=== PATIENT | female | born 1965 | race Caucasian/White ===

== ENCOUNTER 2016-08-22 | Outpatient (CLI) | payer BC | END 2016-08-22 15:02 | disposition critical access hospital (66) | CPT/HCPCS: A0425; A0429 ==

== ENCOUNTER 2016-08-22 15:21 | Emergency (ER) | payer BC ==
[2016-08-22] MEDS ORDERED: ASPIRIN CHEW 81 MG TABLET PO STA (16:08)
[2016-08-22] MEDS ORDERED: ASPIRIN CHEW 81 MG TABLET ONE (16:28)
== END 2016-08-22 17:47 | disposition home or self-care (01) ==
DX: R55 Syncope and collapse (principal); R41.0 Disorientation, unspecified; F41.9 Anxiety disorder, unspecified
CPT/HCPCS: 36415; 80053; 81001; 83690; 83735; 84484; 85025; 87086; 93005; 93010; 99284; A9270

== ENCOUNTER 2016-08-30 18:57 | Emergency (ER) | payer BC ==
[2016-08-30] MEDS ORDERED: POTASSIUM CHLORIDE 20 MEQ TABLET PO STA (21:03)
[2016-08-30] MEDS ORDERED: POTASSIUM CHLORIDE 20 MEQ TABLET PO ONE (21:04)
== END 2016-08-30 21:34 | disposition home or self-care (01) ==
DX: R42 Dizziness and giddiness (principal)
CPT/HCPCS: 36415; 80053; 83690; 85025; 93005; 93010; 93880; 99283; 99284; A9270

== ENCOUNTER 2016-08-31 16:17 | Outpatient (CLI) | payer BC ==
[2016-08-31] MEDS ORDERED: GADOBUTROL 10 MMOL/10 ML VIAL IVP ONE (17:24)
== END 2016-08-31 16:18 | disposition home or self-care (01) ==
DX: R41.82 Altered mental status, unspecified (principal); J34.1 Cyst and mucocele of nose and nasal sinus; R93.0 Abnormal findings on diagnostic imaging of skull and head, not elsewhere classified
CPT/HCPCS: 70553; A9585

== ENCOUNTER 2016-11-15 00:33 | Emergency (ER) | payer BC | END 2016-11-15 01:47 | disposition home or self-care (01) | DX: R00.2 Palpitations (principal) ==

== ENCOUNTER 2017-03-03 10:18 | Outpatient (CLI) | payer BC ==
--- NOTE | 2017-03-06 15:41 | Mammography Report ---
DIGITAL SCREENING MAMMOGRAM: 03/03/2017 CLINICAL INDICATION: A 51-year-old with family history of breast cancer, for screening. COMPARISON: 11/2015, 12/2009. TECHNIQUE: Routine CC and MLO projections were obtained of the breasts. FINDINGS: Scattered fibroglandular tissue is present within the breasts. There are no dominant malka s, suspicious microcalcifications, or secondary signs of malignancy. In comparison to the previous st udies, there are no significant changes. ASSESSMENT: NO MAMMOGRAPHIC EVIDENCE OF MALIGNANCY. NO SIGNIFICANT INTERVAL CHANGES. RECOMMENDATION: Screening mammography is recommended annually. BIRADS category 1 - negative. STANDARD QUALIFYING STATEMENTS 1. This examination was reviewed with the aid of Computed-Aided Detection (CAD). 2. A negative or benign imaging report should not delay biopsy if clinically suspicious findings are present. Consider surgical consultation if warranted. More than 5% of cancers are not identified by i maging. 3. Dense breasts may obscure an underlying neoplasm. JOB #: [id number] EXT JOB #:[id number]
== END 2017-03-03 10:19 | disposition home or self-care (01) ==
LOC: DI.N 10:18
PROVIDERS: ATTEND Physician Assistant
DX: Z12.31 Encounter for screening mammogram for malignant neoplasm of breast (principal)
CPT/HCPCS: 77067

== ENCOUNTER 2020-09-30 21:15 | Outpatient (CLI) | payer BC | END 2020-09-30 21:16 | disposition home or self-care (01) | LOC: COV 21:15 | PROVIDERS: ATTEND Family Medicine | DX: R53.83 Other fatigue (principal); R19.7 Diarrhea, unspecified; R11.0 Nausea; Z20.822 Contact with and (suspected) exposure to COVID-19 ==

== ENCOUNTER 2022-02-23 13:08 | Outpatient (CLI) | payer OTHER ==
--- NOTE | 2022-02-24 09:36 | Mammography Report ---
BILATERAL DIGITAL SCREENING MAMMOGRAM 3D/2D: 02/23/2022 CLINICAL: Family history of breast cancer. Routine screening. Comparison is made to exams dated: 03/03/2017 mammogram and 12/08/2015 mammogram - [facility]. There are scattered fibroglandular elements in both breasts. No significant masses, calcifications, or other findings are seen in either breast. There has been no significant interval change. IMPRESSION: NEGATIVE There is no mammographic evidence of malignancy. A 1 year screening mammogram is recommended. This exam was interpreted at Station ID: [id number]. NOTE: For mammograms, a report in lay terms will be sent to the patient. Approximately 15% of breast malignancies will not be visualized mammographically. In the management of a palpable breast mass, a negative mammogram must not discourage biopsy of a clinically suspicious lesion. Electronically Signed By: Daniel Reid M.D. slc/penrad:02/23/2022 17:09:02 ACR BI-RADS Category 1: Negative 3341F PARENCHYMAL PATTERN: (A) - The breast(s) demonstrate(s) scattered fibroglandular densities. BI-RADS CATEGORY: (1) - 1 RECOMMENDATION: (ANNUAL) - Recommend routine annual screening mammography. [id number] 1 year screening LATERALITY: (B)
== END 2022-02-23 13:09 | disposition home or self-care (01) ==
LOC: DI.N 13:08
DX: Z12.31 Encounter for screening mammogram for malignant neoplasm of breast (principal); Z80.3 Family history of malignant neoplasm of breast

== ENCOUNTER 2023-05-17 12:53 | Outpatient (CLI) | payer OTHER ==
--- NOTE | 2023-05-18 13:41 | Mammography Report ---
BILATERAL DIGITAL SCREENING MAMMOGRAM 3D/2D: 05/17/2023 CLINICAL: Family history of breast cancer. Routine screening. Comparison is made to exams dated: 02/23/2022 mammogram, 03/03/2017 mammogram, and 12/08/2015 mammogram - [facility]. There are scattered areas of fibroglandular density in both breasts (category b / 25%-50% glandular t issue). No significant masses, calcifications, or other findings are seen in either breast. There has been no significant interval change. IMPRESSION: NEGATIVE There is no mammographic evidence of malignancy. A 1 year screening mammogram is recommended. Based on the Tyrer Cuzick model (a risk assessment model) the patients lifetime risk is 15.6% and he r 10 year risk is 5.5%. According to the ACR, ACS, and NCCN guidelines, an annual breast MRI exam raúl ng with mammogram is recommended if the patients lifetime risk is 20% or greater. This exam was interpreted at Station ID: [id number]. NOTE: For mammograms, a report in lay terms will be sent to the patient. Approximately 15% of breast malignancies will not be visualized mammographically. In the management of a palpable breast mass, a negative mammogram must not discourage biopsy of a clinically suspicious lesion. Electronically Signed By: Delvin castillo/[email or web address]:05/17/2023 18:06:26 letter sent: No_Letter ACR BI-RADS Category 1: Negative 3341F PARENCHYMAL PATTERN: (A) - The breast(s) demonstrate(s) scattered fibroglandular densities. BI-RADS CATEGORY: (1) - 1 Mammogram [id number] 1 year screening LATERALITY: (B)
== END 2023-05-17 12:54 | disposition home or self-care (01) ==
LOC: DI.N 12:53
DX: Z12.31 Encounter for screening mammogram for malignant neoplasm of breast (principal); Z80.3 Family history of malignant neoplasm of breast; R92.323 Mammographic fibroglandular density, bilateral breasts